=== PATIENT | male | born 1935 | race Caucasian/White ===

== ENCOUNTER 2022-12-04 14:16 | Observation (INO) | payer MEDICARE, SELFPAY ==
[2022-12-04 15:58] VITALS: BMI 32.3
[2022-12-04 15:59] VITALS: BP 132/68; TEMP 97.8
== END 2022-12-04 18:56 | disposition home or self-care (01) ==
LOC: SDC/OP 14:16 → SURG A 14:34
PROVIDERS: ADMIT Specialist; ATTEND Specialist
DX: S06.5X0A Traumatic subdural hemorrhage without loss of consciousness, initial encounter (principal); X58.XXXA Exposure to other specified factors, initial encounter
CPT/HCPCS: 70450